=== PATIENT | male | born 1980 | race Caucasian/White ===

== ENCOUNTER 2024-03-04 11:05 | Emergency (ER) | payer OTHER, SELFPAY ==
[2024-03-04] MEDS ORDERED: Iopamidol-370 76% 500 ML MDV (1 ML CHARGE) ONE (11:24)
[2024-03-04 11:39] LABS: #Basophils 0.06 10x3/uL (0.0-0.2); #Eosinophils Less than 0.03 10x3/uL (0.0-0.7); %Basophils 0.3 % (0.0-1.0); %Eosinophils 0.1 % (0.0-10.0); %Lymphocytes 11.7 % (21.0-51.0); %Monocytes 7.1 % (0.0-10.0); %Neutrophils 80.2 % (42.0-75.0); Hematocrit 49.1 % (42.0-52.0); Mean Corpuscular HGB CONC 34.6 g/dL (32.0-36.0); Mean Corpuscular Hemoglobin 31.4 pg (27.0-31.0); Mean Corpuscular Volume 90.6 fL (78.0-98.0); Mean Platelet Volume 12.7 fL (7.4-10.4); Platelet Count 146 10x3/uL (130-400); RBC Distribution Width 12.8 % (11.5-14.5); Red Blood Cell (RBC) Count 5.42 mill/uL (4.70-6.10)
[2024-03-04] MEDS ORDERED: Morphine 2 MG/ML VIAL ONE (11:39)
[2024-03-04] MEDS ORDERED: Ondansetron PF 4 MG/2 ML Vial ONE (11:39)
[2024-03-04 11:41] LABS: Alcohol Less than 10.0 mg/dL (Less than 10)
[2024-03-04 11:43] LABS: ALT (SGPT) 37 U/L (8-55); AST (SGOT) 40 U/L (5-34); Albumin 3.7 g/dL (3.5-5.0); Alkaline Phosphatase 70 U/L (40-110); Anion Gap 13 mmol/L (10-20); BUN (Urea Nitrogen) 9 mg/dL (8.9-20.6); Bilirubin, Total 0.6 mg/dL (0.2-1.2); Calc. Creatinine Clearance 0 mL/min (70-130); Calcium 8.6 mg/dL (7.8-10.44); Carbon Dioxide 26 mmol/L (22-29); Chloride 104 mmol/L (98-107); Estimated GFR 113; Globulin 2.5 g/dL (2.4-3.5); Glucose 111 mg/dL (70-105); Lipase 13 U/L (8-78); Potassium 4.6 mmol/L (3.5-5.1); Protein, Total 6.2 g/dL (6.0-8.3); Sodium 138 mmol/L (136-145)
[2024-03-04 11:47] LABS: Prothrombin Time 13.3 sec (12.0-14.7)
[2024-03-04] MEDS ORDERED: Boostrix 0.5 ML (Tdap) VIAL (>/=7 yrs of age) ONE (11:52)
[2024-03-04 11:59] LABS: Platelet Adequacy Comment Platelets Normal; Polychromasia SLIGHT = 2-3 cells HPF (0-2)
[2024-03-04] MEDS ORDERED: Sodium Chloride 0.9% 100 ML ONE (13:17)
[2024-03-04] MEDS ORDERED: CEFAZOLIN 2 GM VIAL ONE (13:17)
[2024-03-04] MEDS ORDERED: HYDROcodone/Acetaminophen 5/325 mg Tablet ONE (16:34)
== END 2024-03-04 21:45 | disposition home or self-care (01) ==
LOC: ERS 11:05
DX: S06.6X9A Traumatic subarachnoid hemorrhage with loss of consciousness of unspecified duration, initial encounter (principal); S02.19XA Other fracture of base of skull, initial encounter for closed fracture; S42.002A Fracture of unspecified part of left clavicle, initial encounter for closed fracture; S22.019A Unspecified fracture of first thoracic vertebra, initial encounter for closed fracture; S01.83XA Puncture wound without foreign body of other part of head, initial encounter; S90.119A Contusion of unspecified great toe without damage to nail, initial encounter; S80.212A Abrasion, left knee, initial encounter; S60.511A Abrasion of right hand, initial encounter; S30.811A Abrasion of abdominal wall, initial encounter; S20.314A Abrasion of middle front wall of thorax, initial encounter; S20.311A Abrasion of right front wall of thorax, initial encounter; I10 Essential (primary) hypertension; F17.210 Nicotine dependence, cigarettes, uncomplicated; F32.A Depression, unspecified; V27.01XA Electric (assisted) bicycle driver injured in collision with fixed or stationary object in nontraffic accident, initial encounter; Y93.89 Activity, other specified; Z23 Encounter for immunization
CPT/HCPCS: 70450; 70486; 71260; 72125; 72141; 72146; 74177; 80053; 80307; 83690; 85025; 85610; 85730; 90471; 90715; 93005; 94760; 96374; 96375; J2272; J2405; Q9967

== ENCOUNTER 2024-03-19 12:38 | Outpatient (CLI) | payer OTHER | END 2024-03-19 12:39 | disposition home or self-care (01) | LOC: BICCT 12:38 | PROVIDERS: ATTEND Neurological Surgery | DX: S22.010A Wedge compression fracture of first thoracic vertebra, initial encounter for closed fracture (principal); S06.6X9A Traumatic subarachnoid hemorrhage with loss of consciousness of unspecified duration, initial encounter; M54.2 Cervicalgia | CPT/HCPCS: 70450; 72040; 72070 ==